=== PATIENT | female | born 1990 | race Caucasian/White ===

== ENCOUNTER 2021-05-13 20:29 | Emergency (ER) | payer SELFPAY ==
[~2021-05-13] VITALS: Ht 160 cm; Wt 112.9 kg
[2021-05-13 21:08] VITALS: BP 136/86
--- NOTE | 2021-05-13 21:18 | NUR ---
TO BED 1 AMBULATORY WITH C/O LOWER ABDOMINAL PAIN RADIATING TO ANUS. DENIES URINARY COMPLAINTS DENIES PMH NKDA
[2021-05-13] MEDS ORDERED: ALBUTEROL SULFATE/IPRATROPIU 3 ML SOL IH ONE (23:10)
--- NOTE | 2021-05-13 23:30 | NUR ---
Respiratory Therapist at bedside for respiratory intervention.
[2021-05-14] MEDS ORDERED: ALBU0.0912 IH (01:24)
--- NOTE | 2021-05-14 01:37 | NUR ---
CALLED LAB FOR COVID RESULTS.
[2021-05-14 02:20] VITALS: BP 136/86
--- NOTE | 2021-05-14 02:20 | NUR ---
Patient discharged with v/s stable. Written and verbal after care instructions given and explained. Patient alert, oriented and verbalized understanding of instructions. Ambulatory with steady gait. All questions addressed prior to discharge. ID band removed. Patient advised to follow up with PMD. Rx of ALBUTEROL SULFATE given. Patient educated on indication of medication including possible reaction and side effects. Opportunity to ask questions provided and answered.
--- NOTE | 2021-05-14 02:32 | NUR ---
The patient's care was reviewed and supervised by Marine Medrano RN.
== END 2021-05-14 02:20 | disposition home or self-care (01) ==
LOC: MED 20:29
DX: R06.02 Shortness of breath (principal); R09.89 Other specified symptoms and signs involving the circulatory and respiratory systems; Z20.822 Contact with and (suspected) exposure to COVID-19
CPT/HCPCS: 71045; 81002; 81025; 87426; 94640; 99284; Q0092; 99283